=== PATIENT | male | born 1995 ===

== ENCOUNTER 2024-01-29 17:35 | Emergency (ER) | payer OTHER ==
[~2024-01-29] VITALS: Ht 172.7 cm; Wt 86.2 kg
[2024-01-29 18:30] LABS: BASOPHILS ABSOLUTE AUTO 0.06 K/mm3 (0.00-0.23); BASOPHILS PERCENT AUTO 1 % (0-2); EOSINOPHILS ABSOLUTE AUTO 0.03 K/mm3 (0.00-0.68); EOSINOPHILS PERCENT AUTO 0 % (0-6); Hematocrit 45.3 % (37.0-53.0); Hemoglobin 15.9 g/dL (13.5-17.5); IMMATURE GRAN ABSOLUTE AUTO 0.03 K/mm3 (0.00-0.10); IMMATURE GRAN PERCENT AUTO 0 % (0-1); LYMPHOCYTES ABSOLUTE AUTO 2.42 K/mm3 (0.84-5.20); LYMPHOCYTES PERCENT AUTO 21 % (21-46); MONOCYTES ABSOLUTE AUTO 0.54 K/mm3 (0.16-1.47); MONOCYTES PERCENT AUTO 5 % (4-13); Mean Corpuscular HGB 30.2 pg (26.0-34.0); Mean Corpuscular HGB Conc 35.1 g/dL (31.5-36.5); Mean Corpuscular Volume 86 fL (80-100); Mean Platelet Volume 11.9 fL (9.1-12.4); NEUTROPHILS ABSOLUTE AUTO 8.39 K/mm3 (1.96-9.15); NEUTROPHILS PERCENT AUTO 73 % (41-73); Platelet Count 252 K/mm3 (150-400); RDW Coefficient Variation 12.3 % (11.7-14.2); RDW Standard Deviation 38.5 fL (35.1-46.3); Red Blood Cell Count 5.27 M/mm3 (4.30-5.90); White Blood Cell Count 11.47 K/mm3 (4.00-11.30)
[2024-01-29 18:53] LABS: Albumin, Blood 4.3 g/dL (3.4-5.0); Albumin/Globulin Ratio 1.1 (0.8-1.8); Bilirubin, Total 0.8 mg/dL (0.1-1.0); Bun/Creatinine Ratio 21.1 (12.0-20.0); Creatinine, Blood 1.09 mg/dL (0.60-1.20); Globulin, Blood 3.8 g/dL (2.2-4.0); Potassium, Blood 3.4 mmol/L (3.5-5.5); Total Protein, Blood 8.1 g/dL (6.4-8.2)
[2024-01-29] MEDS ORDERED: LORA2L PO (20:47)
[2024-01-29] MEDS ORDERED: ABILIFY MAINTE300 M1 IM (20:47)
[2024-01-29] MEDS ORDERED: Lactated Ringer's 1,000 ML IV ONE (21:10)
[2024-01-29] MEDS ORDERED: LORazepam 2 MG/ML 1ML Injection IV ONE (21:15)
== END 2024-01-29 21:56 | disposition home or self-care (01) ==
LOC: ER 17:35
PROVIDERS: Physician Assistant
DX: F20.2 Catatonic schizophrenia (principal)
CPT/HCPCS: 71046; 80053; 85025; 93005; 93010; 96361; 96374; 99283-25; J2060; J7120